=== PATIENT | male | born 1955 | race Caucasian/White ===

== ENCOUNTER → 2016-12-07 | Outpatient (CLI) | payer OTHER ==
[~2016-12-07] MED LIST: IOPAMIDOL (ISOVUE 370) 100 ML BTL IV ONE
--- NOTE | 2016-12-07 17:14 | CT ---
CT Heart With Contrast Indication: Precardiac ablation. Atrial fibrillation. Technique: Axial contrast-enhanced images were obtained through the chest following the uneventful in travenous administration of 90 mL Isovue-370. Multiplanar reformations were performed. Additional r eformations were performed at the workstation by the radiologist. Dose reduction techniques were util ized. Findings: Normal pulmonary venous anatomy. No accessory branches, webs, or strictures. Pulmonary vein measurements are as follows: Right superior: [place] 2.1 x 2.0 cm, first branching at 0.8 cm. Right inferior: Ostium 2.2 x 2.1 cm, first branching at 0.3 cm. Left superior: Ostium 3.7 x 3.2 cm, first branching at 2.1 cm. Left inferior: Ostium 2.0 x 1.4 cm, first branching at 0.8 cm. Left atrial volume: 162 mL The ascending aorta is dilated measuring 4.0 cm AP. The descending thoracic aorta is normal caliber. No dissection. The origin of the great vessels are widely patent. Heart size is normal. No pericardial or pleural effusion. No enlarged lymph node or mass throughout t he axilla, mediastinum, pulmonary virginie, or imaged portion of the upper abdomen. The lungs are well aerated and clear with minimal diffuse peribronchial thickening. No pulmonary nodu le, mass, consolidation or edema. The central airway is clear. Mild degenerative disk disease. Impression: 1. Normal pulmonary venous anatomy. 2. Dilated, aneurysmal 4 cm ascending aorta. Recommend intermittent surveillance. 3. Clear lungs. No pulmonary nodule or lymphadenopathy.
== END ==
LOC: FIMAGING 07:39
PROVIDERS: ATTEND Internal Medicine Cardiovascular Disease
DX: Z01.818 Encounter for other preprocedural examination (principal); I48.91 Unspecified atrial fibrillation; I77.819 Aortic ectasia, unspecified site
CPT/HCPCS: Q9967

== ENCOUNTER 2016-12-14 06:49 | Observation (INO) | payer OTHER ==
[2016-12-14] MEDS ORDERED: NS 1,000 ML IV ONE (07:09)
--- NOTE | 2016-12-14 07:14 | CPEKG ---
Heart Rate: 88 RR Interval: 682 P-R Interval: 236 QRSD Interval: 88 QT Interval: 368 QTC Interval: 446 P [place]: 58 QRS [place]: 79 T Wave [place]: 45 EKG Severity - ABNORMAL ECG - EKG Impression: SINUS RHYTHM EKG Impression: VENTRICULAR PREMATURE COMPLEX EKG Impression: FIRST DEGREE AV BLOCK EKG Impression: LEFT ATRIAL ABNORMALITY EKG Impression: CONSIDER ANTEROSEPTAL INFARCT Electronically Signed By: Ulysses Castro 14-Dec-2016 17:22:20
[2016-12-14 07:36] LABS: % IMMATURE GRANULYOCYTES 0.3 % (0.0-1.1); ABSOLUTE IMMATURE GRANULOCYTES 0.02 10^3/uL (0.00-0.10); ADD DIFF? NO; ADD MORPH? NO; ADD SCAN? NO; ATYPICAL LYMPHOCYTE FLAG 10 (0-99); FRAGMENT RBC FLAG 0 (0-99); HEMATOCRIT 54.2 % (40.0-51.0); HEMOGLOBIN 19.3 g/dL (13.7-17.5); LEFT SHIFT FLG 0 (0-99); LIPEMIA HEMOLYSIS FLAG 90 (0-99); MEAN CELL HEMOGLOBIN 31.7 pg (27.9-34.1); MEAN CELL HEMOGLOBIN CONCENTR. 35.6 g/dL (32.4-36.7); MEAN PLATELET VOLUME 9.8 fL (8.7-11.7); PLATELET CLUMPS FLAG 0 (0-99); PLATELET COUNT 271 10^3/uL (150-400); RED BLOOD CELL COUNT 6.09 10^6/uL (4.40-6.38); RED CELL DISTRIBUTION WIDTH 11.9 % (11.5-15.2)
[2016-12-14 07:45] LABS: PROTIME(PATIENT) 13.1 SEC (12.0-15.0)
[2016-12-14 07:46] LABS: APTT 34.3 SEC (23.0-38.0)
[2016-12-14 07:51] LABS: ANION GAP 12 mEq/L (8-16); CALCIUM 9.5 mg/dL (8.5-10.4); CARBON DIOXIDE 25 mEq/l (22-31); CHLORIDE 104 mEq/L (97-110); GLOMERULAR FILTRATION RATE > 60; GLUCOSE 93 mg/dL (70-100); SODIUM 141 mEq/L (134-144)
[2016-12-14] MEDS ORDERED: LIDOCAINE 1% 30 ML SDV ONE (08:00)
[2016-12-14] MEDS ORDERED: HEPARIN 10,000 UNIT/10 ML MDV ONE (08:00)
[2016-12-14] MEDS ORDERED: HEPARIN/DEXTROSE 25,000 UNIT/500 ML BAG IV ONE (08:00)
[2016-12-14] MEDS ORDERED: BUPIVACAINE 0.5% 30 ML SDV ONE (08:00)
[2016-12-14] MEDS ORDERED: IOPAMIDOL (ISOVUE-370) 150 ML BTL IV ONE (08:01)
[2016-12-14] MEDS ORDERED: MIDAZOLAM 2 MG/2 ML VIAL ONE (08:34)
[2016-12-14] MEDS ORDERED: PROPOFOL 200 MG/20 ML VIAL ONE (08:38)
[2016-12-14] MEDS ORDERED: fentaNYL 100 MCG/2 ML INJ ONE (08:38)
[2016-12-14] MEDS ORDERED: ONDANSETRON 4 MG/2 ML VIAL ONE ×2 (08:38→11:37)
[2016-12-14] MEDS ORDERED: DEXAMETHASONE 4 MG/ML VIAL ONE (08:38)
[2016-12-14] MEDS ORDERED: ROCURONIUM 50 MG/5 ML VIAL ONE (08:38)
[2016-12-14] MEDS ORDERED: LIDOCAINE 2% 5 ML SDV ONE (08:49)
[2016-12-14] MEDS ORDERED: epHEDrine SULFATE 10 MG/ML SYR ONE (09:06)
[2016-12-14] MEDS ORDERED: PHENYLEPHRINE 10 MG/ML SDV ONE (09:07)
[2016-12-14] MEDS ORDERED: PROTAMINE SULFATE 50 MG/5 ML VIAL IVP ONE (11:13)
[2016-12-14] MEDS ORDERED: SUGAMMADEX SODIUM 200 MG/2 ML VIAL IVP ONE (11:24)
--- NOTE | 2016-12-14 11:31 | EPPROC ---
Electrophysiology Procedure Note: ELECTROPHYSIOLOGIC STUDY AND BALLOON-CATHETER MEDIATED CRYOABLATION FOR PAROXYSMAL ATRIAL FIBRILLATION Procedures performed: 61015-05 EP evaluation with RA/RV/LA pace/record, with arrhythmia induction 29409-59 EP evaluation with RA/RV pace record, insert/reposition catheter, with arrhythmia induction 57380 Atrial fibrillation ablation Intracardiac echocardiogram Transseptal puncture Fluoroscopy INDICATION: Paroxysmal atrial fibrillation PROCEDURE: The patient arrived in the Electrophysiology Laboratory in the fasting state. The right groin, left groin and right infraclavicular area were prepped and draped in the usual sterile fashion. Anesthesiologist administered general anesthesia - Dr. Ramana Boogie . All catheters were placed percutaneously using the Seldinger technique and advanced into position under fluoroscopic guidance. One #7 Croatian deflectable octapolar electrode catheter was placed in the His-bundle position via the left femoral vein (2mm spacing, IVC electrode for unipolar recordings). This catheter was placed in the coronary sinus after transseptal puncture and later placed in the SVC-R subclavian vein junction to pace the right phrenic nerve during right pulmonary vein ablation. One #8 Croatian AcuNaV ultrasound catheter was placed in the left femoral vein and advanced into the right atrium. One #4 Croatian sheath was inserted into the left femoral artery via percutaneous technique and used for continuous arterial blood pressure monitoring and intermittent ACT determination. Programmed stimulation was performed from the right atrium, left atrium (CS) and right ventricle. There was no evidence of AV accessory pathway. Intracardiac echo evaluation of the left atrium and pulmonary veins was performed. Baseline ACT was drawn and heparin bolus was administered and heparin drip was started prior to transseptal puncture. ACT was checked every 15 minutes and maintained in the range of 350-400 seconds. One 14Fr short sheath was placed in the right femoral vein. One 8Fr SL1 sheath was advanced into the right atrium via the 14Fr short sheath. Transseptal puncture was performed under intracardiac ultrasound, fluoroscopic and hemodynamic guidance placing the sheath into the left atrium. Bowdon RF needle ( C0 curve) was used. The mean left atrial pressure was 14 mmHg. Pulmonary vein angiogram was done using SL1 sheath. CT angiography of pulmonary veins was done previously. There were distinct LSPV, LIPV, RSPV and RIPV. The SL1 sheath was exchanged for a Side.Crtronic Flexcath sheath using an Amplatz stiff guide wire. A 28 mm Cryoballoon catheter with a 20 mm Achieve catheter was placed via the sheath into the left atrium. Intracardiac ultrasound and PV angiograms were used to assist in placing the mapping catheter at the antrum of the pulmonary veins. All pulmonary veins were isolated successfully using cryoballoon ablation using freeze/thaw/freeze cycles at 2-3-minute intervals, with good [id number] of isolation. Coumadin ridge/Ligament of Andrea region was ablated. Pre and post pulmonary vein recordings were measured on the spiral Achieve catheter to ensure complete pulmonary vein isolation. During the right-sided ablation, phrenic nerve pacing was performed to assess the phrenic nerve strength ( manually and with ICE visualization of liver movement during phrenic capture) and the phrenic nerve was intact throughout the right-sided ablation and at the end of the procedure. There was transient derease in amplitude of R hemidiaphragm excursion during first CB application of RSPV, there was never complete phrenic palsy. Amplitude of R hemidiaphragm returned to normal within 2 minutes post ablation. Second CB application to RSPV was applied more antrally and there was no decrease in amplitude of R hemidiaphragm during the second CB application. CB needed to be changed out due to inadequate temperature achieved despite optimal occlusion on the first 2 freezes. An esophageal temperature probe (12 electrode, Circa) was placed by the anesthesiologist at the beginning of the procedure. Esophageal temperature was monitored continuously and cryoablation was interrupted if esophageal temperature was <15 C. Cryoapplications 14 total cryoablation time 1813s ICE imaging post ablation was consistent with pre ablation imaging with no changes noted, moreover there was no left atrial/left ventricular thrombus and no pericardial effusion. The catheters were withdrawn. Protamine was given. The sheaths were removed and manual pressure was used for hemostasis. The patient was recovered from anesthesia. There were no complications. The patient was arousable and moving all four extremities at the end of the procedure. SCL 975 ms AH 130 ms HV 55 ms Antegrade WBB 450 ms, no antegrade SP CONCLUSIONS: 1. Paroxysmal atrial fibrillation. 2. Successful pulmonary vein isolation procedure (left and right pulmonary vein antrum) using cryoballoon ablation. 3. No apparent complications. Patient Problems: Problems Problem Status Diagnosed Atrial fibrillation Acute
[2016-12-14] MEDS ORDERED: OXYCODONE/APAP 5/325 TAB PO PRN (11:32)
[2016-12-14] MEDS ORDERED: ACETAMINOPHEN 325 MG TAB PO PRN (11:32)
[2016-12-14] MEDS ORDERED: ONDANSETRON 4 MG/2 ML VIAL IVP PRN (11:32)
[2016-12-14] MEDS ORDERED: LOSARTAN POTASSIUM 25 MG TAB PO PRN (11:33)
[2016-12-14] MEDS ORDERED: PROMETHAZINE HCL 25 MG/ML VIAL ONE (11:46)
--- NOTE | 2016-12-14 11:51 | CPEKG ---
Heart Rate: 88 RR Interval: 682 P-R Interval: 212 QRSD Interval: 92 QT Interval: 384 QTC Interval: 465 P [place]: 19 QRS [place]: 74 T Wave [place]: 56 EKG Severity - ABNORMAL ECG - EKG Impression: SINUS RHYTHM EKG Impression: LOW VOLTAGE IN FRONTAL LEADS EKG Impression: CONSIDER ANTEROSEPTAL INFARCT Electronically Signed By: Ulysses Castro 14-Dec-2016 17:22:05
[2016-12-14] MEDS ORDERED: ATROPINE SULFATE 1 MG/10 ML SYR ONE (12:19)
[2016-12-14 12:29] LABS: ANION GAP 11 mEq/L (8-16); CALCIUM 8.4 mg/dL (8.5-10.4); CARBON DIOXIDE 23 mEq/l (22-31); CHLORIDE 106 mEq/L (97-110); GLOMERULAR FILTRATION RATE > 60; GLUCOSE 132 mg/dL (70-100); MAGNESIUM 1.8 mg/dL (1.6-2.3); SODIUM 140 mEq/L (134-144)
[2016-12-14] MEDS ORDERED: CEPACOL LOZENGE PO PRN (13:44)
[2016-12-14] MEDS: ENOXAPARIN 80 MG/0.8 ML SYR SC SCH ×2 (18:14→21:13)
[2016-12-15 05:52] LABS: % IMMATURE GRANULYOCYTES 0.2 % (0.0-1.1); ABSOLUTE IMMATURE GRANULOCYTES 0.03 10^3/uL (0.00-0.10); ADD DIFF? NO; ADD MORPH? NO; ADD SCAN? NO; ATYPICAL LYMPHOCYTE FLAG 0 (0-99); FRAGMENT RBC FLAG 0 (0-99); HEMATOCRIT 45.6 % (40.0-51.0); HEMOGLOBIN 16.1 g/dL (13.7-17.5); LEFT SHIFT FLG 0 (0-99); LIPEMIA HEMOLYSIS FLAG 90 (0-99); MEAN CELL HEMOGLOBIN 31.5 pg (27.9-34.1); MEAN CELL HEMOGLOBIN CONCENTR. 35.3 g/dL (32.4-36.7); MEAN CELL VOLUME 89.2 fL (81.5-99.8); MEAN PLATELET VOLUME 9.8 fL (8.7-11.7); PLATELET CLUMPS FLAG 30 (0-99); PLATELET COUNT 216 10^3/uL (150-400); RED BLOOD CELL COUNT 5.11 10^6/uL (4.40-6.38); RED CELL DISTRIBUTION WIDTH 11.9 % (11.5-15.2)
[2016-12-15 06:03] LABS: INR 1.1 (0.83-1.16); PROTIME(PATIENT) 14.1 SEC (12.0-15.0)
[2016-12-15 06:13] LABS: ANION GAP 7 mEq/L (8-16); CALCIUM 8.6 mg/dL (8.5-10.4); CARBON DIOXIDE 24 mEq/l (22-31); CHLORIDE 104 mEq/L (97-110); CREATININE 0.9 mg/dL (0.7-1.3); GLOMERULAR FILTRATION RATE > 60; GLUCOSE 91 mg/dL (70-100); SODIUM 135 mEq/L (134-144)
[2016-12-15 06:18] LABS: CK-MB INTERPRETATION POSITIVE (NEGATIVE)
[2016-12-15 06:40] VITALS: O2SAT 96
[2016-12-15] MEDS: ENOXAPARIN 80 MG/0.8 ML SYR SC SCH (08:28)
--- NOTE | 2016-12-15 08:37 | CPEKG ---
Heart Rate: 99 RR Interval: 606 P-R Interval: 220 QRSD Interval: 80 QT Interval: 328 QTC Interval: 421 P [place]: -46 QRS [place]: 71 T Wave [place]: 4 EKG Severity - ABNORMAL ECG - EKG Impression: SINUS OR ECTOPIC ATRIAL RHYTHM EKG Impression: FIRST DEGREE AV BLOCK EKG Impression: LEFT ATRIAL ABNORMALITY Electronically Signed By: Ulysses Castro 15-Dec-2016 14:18:32
[2016-12-15] MEDS ORDERED: PANTOPRAZOLE SODIUM 40 MG TAB PO SCH (09:00)
[2016-12-15 09:02] VITALS: BP 114/74; TEMP 100.7
[2016-12-15] MEDS ORDERED: NS 1,000 ML IV SCH (10:45)
--- NOTE | 2016-12-15 11:48 | ECHO ---
[id number] + + [address] : : [facility] [address] : : [phone] + + Adult Echocardiographic Report + -------+ :Name: PASCUAL GRIFFIN RStudy Date: 12/15/2016 08:56 AM : : Hospital Admission Number: [id number] Locati on: 257: :: 1955 Gender: Male Height: 70 in : :Age: 61 yrs Race: WH Weight: 177 lb : :Reason For Study: Eval LV Fx : : BSA: 2.0 meter s2 : :History: F/U Post EP Study : + -------+ Left Ventricle The left ventricle is normal in size. There is normal left ventricular wall thickness. Tachycardia at 100 bpm. An intracavitary gradient is present. The left ventricular ejection fraction is normal. The left ventricle is hyperdynamic. Ejection Fraction = 70%. The left ventricular wall motion is normal. Right Ventricle The right ventricle is normal in size and function. Atria The left atrial size is normal. Right atrial size is normal. Mitral Valve There is systolic anterior motion of the chordal apparatus. There is no evidence of mitral valve prolapse. There is no mitral valve stenosis. There is no mitral regurgitation noted. Tricuspid Valve Normal tricuspid valve. No tricuspid regurgitation. Aortic Valve The aortic valve is normal in structure and function. There is no aortic stenosis. There is no aortic insufficiency. Pulmonic Valve The pulmonic valve is normal in structure and function. There is no pulmonic valvular regurgitation. Great Vessels The aortic root is normal size. Pericardium/Pleural There is no pericardial effusion. Conclusion A complete two-dimensional transthoracic echocardiogram was performed (2D, M-mode, Doppler and color flow Doppler). Tachycardia The left ventricular ejection fraction is normal. The left ventricle is hyperdynamic. An intracavitary gradient is present. Ejection Fraction = 70%. The left ventricular wall motion is normal. The right ventricle is normal in size and function. There is systolic anterior motion of the chordal apparatus. Normal tricuspid valve The aortic valve is normal in structure and function. There is no pericardial effusion. Final Reading Physician: John Wall signed on 12/15/2016 11:47 AM Ordering Physician: Elias Henderson Performed By: Joaquim Blank, JAMESCS
[2016-12-15 12:39] VITALS: PULSE 88; RESP 17
--- NOTE | 2016-12-15 15:48 | GDS ---
[f rep st] DISCHARGE SUMMARY DISCHARGE DIAGNOSES: 1. Paroxysmal atrial fibrillation status post EP study and successful pulmonary vein isolation proce dure of the left and right pulmonary vein antra using cryoballoon. 2. Left ventricular hypertrophy. 3. Ascending aortic dilation. PROCEDURES: 1. 12/14/2016: Electrophysiologic study with successful cryoballoon ablation and pulmonary vein iso lation. 2. 12/15/2016: Echocardiogram, which demonstrated ejection fraction of 70%. There was an intracavi tary gradient present and systolic anterior motion of the chordal apparatus. No pericardial effusion was noted. BRIEF HISTORY: Please see dictated H and P from our office for complete details. In brief, the rigoberto ent is a 61-year-old male who was seen by Dr. Henderson for evaluation of episodes of atrial fibrillation. He had an initial episode in February of 2016 while mountain biking, at which time he developed dizzine ss and elevated heart rates in the 170-beat per minute range. [facility], and was found to be in atrial fibrillation that spontaneously converted. Since that episode, he has had 5 or 6 other episodes lasting for hours. He was offered ablation, which was performed on . On day of discharge, patient denies any chest pain. He has been able to ambulate. He was noted to have some elevated heart rates. IV fluids were given, and heart rates have improved. He de nies any groin discomfort. LABORATORY DATA: CBC with WBC 13.72, hemoglobin 16, hematocrit 45.6, platelet count of 216. Sodium 135, potassium 4, chloride 104, CO2 of 24, BUN 7, creatinine 0.9, glucose 91. Troponin 8.75, consist ent with recent ablation. RESULTS PENDING: None. DISCHARGE MEDICATIONS: Please see med reconciliation. He is being discharged on all his home medica tions, which include omeprazole, testosterone, losartan, apixaban 5 mg p.o. twice daily, and omega-3 fatty acids. FOLLOWUP: Dr. Henderson as scheduled December 30. /[id number]/MODL
== END 2016-12-15 13:18 | disposition home or self-care (01) ==
LOC: FCATH 06:49 → INTOOBSV 11:49 → F2N 11:49
PROVIDERS: ADMIT Internal Medicine Cardiovascular Disease; ATTEND Internal Medicine Cardiovascular Disease
PROC: 025T3ZZ Destruction of Left Pulmonary Vein, Percutaneous Approach (ICD-10-PCS; principal; 2016-12-14)
PROC: 025S3ZZ Destruction of Right Pulmonary Vein, Percutaneous Approach (ICD-10-PCS; principal; 2016-12-14)
PROC: 02K83ZZ Map Conduction Mechanism, Percutaneous Approach (ICD-10-PCS; principal; 2016-12-14)
DX: I48.0 Paroxysmal atrial fibrillation (principal); I77.810 Thoracic aortic ectasia; I51.7 Cardiomegaly
CPT/HCPCS: 93005; 93306; 93312; 93609; 93656; 93662; C1731; C1766; G0378; C1730; C1732; C1733; C1759; C1893; J0461; J1100; J1644; J1650; J2250; J2370; J2405; J2550; J2704; J2720; J3010; Q9967